=== PATIENT | female | born 1970 | race Hispanic/Latino ===

== ENCOUNTER 2023-01-11 10:28 | Inpatient (IN) | payer BC ==
[~2023-01-11] VITALS: Ht 167.6 cm; Wt 88.0 kg
[2023-01-11 14:16] LABS: BASOPHILS # (AUTO) 0.03 K/uL (0.00-0.20); BASOPHILS % (AUTO) 0.3 % (0.0-5.0); EOSINOPHILS # (AUTO) 0.13 K/uL (0.00-0.70); EOSINOPHILS % (AUTO) 1.3 % (0.0-8.0); HEMATOCRIT 34.4 % (36-48); LYMPHOCYTES # (AUTO) 2.5 K/uL (1.0-4.8); LYMPHOCYTES % (AUTO) 26.3 % (21.0-51.0); MEAN CORPUSCULAR HEMOGLOBIN 28.5 pg (27.0-33.0); MEAN CORPUSCULAR HGB CONC 32.6 g/dL (32.0-36.0); MEAN CORPUSCULAR VOLUME 87.5 fL (79-99); MONOCYTES # (AUTO) 0.8 K/uL (0.1-1.0); MONOCYTES % (AUTO) 7.9 % (3.0-13.0); NEUTROPHILS # (AUTO) 6.1 K/uL (1.8-7.7); NEUTROPHILS % (AUTO) 63.2 % (40.0-77.0); PLATELET COUNT (AUTO) 250 K/uL (130-400); RED BLOOD CELL COUNT(AUTO) 3.93 MIL/uL (4.00-5.50); RED CELL DISTRIBUTION WIDTH 13.7 % (11.0-15.5); WHITE BLOOD COUNT (AUTO) 9.6 K/uL (4.8-10.8)
[2023-01-11 14:22] LABS: INR < 0.93 (0.85-1.15); PROTHROMBIN TIME 10.3 SEC (9.6-11.6)
[2023-01-11 14:24] LABS: PARTIAL THROMBOPLASTIN TIME 26.9 SEC (26.3-35.5)
[2023-01-11 14:35] LABS: CREATININE 0.8 mg/dL (0.5-1.5); POTASSIUM 4.3 mmol/L (3.5-5.1)
[2023-01-11 14:40] LABS: ALBUMIN 3.7 g/dL (3.5-5.0); BILIRUBIN,TOTAL 0.2 mg/dL (0.2-1.0)
[2023-01-11] MEDS: CEFTRIAXONE 1G VIAL IVPB SCH (17:01)
[2023-01-11 17:16] LABS: HEMOGLOBIN A1C 9.8 % (4.0-6.0)
[2023-01-11] MEDS ORDERED: 0.9%NACL 1000ML 1,000 ML IV ONE (18:00)
[2023-01-11] MEDS: MUPIROCIN OINTMENT 22 GM TUBE TP SCH (18:19)
[2023-01-11] MEDS: KETOROLAC 15MG/ML VIAL (15MG/ML) IV PRN (18:20)
[2023-01-11] MEDS ORDERED: PROPOFOL 10 MG/ML 20ML VIAL IV ONE (18:50)
[2023-01-11] MEDS ORDERED: MIDAZOLAM HCL 1 MG/ML 2ML VIAL ONE (18:50)
[2023-01-11] MEDS ORDERED: ROCURONIUM 10MG/1ML SYR 10 MG/ML ML ONE (18:50)
[2023-01-11] MEDS ORDERED: FENTANYL CITRATE PF 50 MCG/1 ML 5ML AMP IV ONE (18:50)
[2023-01-11] MEDS: INSULIN HUMULIN R 100 UNIT/ML 3ML SQ SCH (21:00)
[2023-01-11] MEDS: INSULIN GLARGINE 100 UNITS/ML 10 ML VIAL SQ SCH (21:00)
[2023-01-11 22:30] VITALS: O2SAT 98
[2023-01-11 23:08] VITALS: BP 129/74; PULSE 98; RESP 20
[2023-01-12] VITALS (29 sets, daily range): BP systolic 112–144; BP diastolic 60–74; PULSE 93–119; RESP 12–20; O2SAT 98
[2023-01-12] MEDS ORDERED: ATOR40TA69 PO (00:05)
[2023-01-12] MEDS ORDERED: FISH1CAP27 PO (00:05)
[2023-01-12] MEDS ORDERED: CETI10TA57 PO (00:05)
[2023-01-12] MEDS ORDERED: METO50TA18 PO (00:05)
[2023-01-12] MEDS ORDERED: GABA300C PO (00:05)
[2023-01-12] MEDS ORDERED: FENO54TA6 PO (00:05)
[2023-01-12] MEDS ORDERED: CLOP75TA32 PO (00:05)
[2023-01-12] MEDS ORDERED: METF-446 PO (00:05)
[2023-01-12] MEDS: KETOROLAC 15MG/ML VIAL (15MG/ML) IV PRN (00:12)
[2023-01-12 04:44] LABS: BASOPHILS # (AUTO) 0.04 K/uL (0.00-0.20); BASOPHILS % (AUTO) 0.4 % (0.0-5.0); EOSINOPHILS # (AUTO) 0.08 K/uL (0.00-0.70); EOSINOPHILS % (AUTO) 0.8 % (0.0-8.0); HEMATOCRIT 29.1 % (36-48); IMMATURE GRANULOCYTE ABSOLUTE 0.05 K/uL (0-1); LYMPHOCYTES # (AUTO) 3.1 K/uL (1.0-4.8); MEAN CORPUSCULAR HEMOGLOBIN 28.4 pg (27.0-33.0); MEAN CORPUSCULAR VOLUME 88.7 fL (79-99); MONOCYTES # (AUTO) 0.9 K/uL (0.1-1.0); MONOCYTES % (AUTO) 9.1 % (3.0-13.0); NEUTROPHILS # (AUTO) 5.6 K/uL (1.8-7.7); NEUTROPHILS % (AUTO) 57.2 % (40.0-77.0); PLATELET COUNT (AUTO) 183 K/uL (130-400); RED BLOOD CELL COUNT(AUTO) 3.28 MIL/uL (4.00-5.50); RED CELL DISTRIBUTION WIDTH 13.7 % (11.0-15.5); WHITE BLOOD COUNT (AUTO) 9.8 K/uL (4.8-10.8)
[2023-01-12 04:52] LABS: CREATININE 0.9 mg/dL (0.5-1.5); POTASSIUM 4.6 mmol/L (3.5-5.1)
[2023-01-12] MEDS: INSULIN HUMULIN R 100 UNIT/ML 3ML SQ SCH ×4 (06:12→21:02)
[2023-01-12] MEDS ORDERED: ONDANSETRON 4MG INJ ONE (07:24)
[2023-01-12] MEDS ORDERED: LIDOCAINE 2%-EPI 1:200,000 20 ML VIAL IJ ONE (07:30)
[2023-01-12] MEDS ORDERED: ROPIVACAINE 0.5% 5MG/ML 30ML IJ ONE (07:30)
[2023-01-12] MEDS ORDERED: DEXAMETHASONE SOD PHOSPHATE 10MG/ML 1ML VIAL ONE (07:31)
[2023-01-12] MEDS ORDERED: TRANEXAMIC ACID 1000MG/10ML ONE (08:23)
[2023-01-12] MEDS ORDERED: TRANEXAMIC ACID 1000MG/10ML IV ONE (08:46)
[2023-01-12] MEDS ORDERED: ROCURONIUM 10MG/1ML SYR 10 MG/ML ML ONE (08:58)
[2023-01-12] MEDS: MUPIROCIN OINTMENT 22 GM TUBE TP SCH ×2 (09:00→21:00)
[2023-01-12] MEDS ORDERED: PHENYLEPHRINE HCL 10 MG/ML 1ML VIAL IV ONE (09:03)
[2023-01-12] MEDS ORDERED: MEPERIDINE-PF 25 MG/ML SYG ONE (10:19)
[2023-01-12] MEDS ORDERED: FENTANYL CITRATE PF 50 MCG/1 ML 2ML VIAL ONE ×2 (10:49→10:54)
[2023-01-12] MEDS ORDERED: CEFAZOLIN SODIUM 2 GM VIAL ONE (10:51)
[2023-01-12] MEDS ORDERED: KETOROLAC 30MG VIAL (30MG/ML) ONE (10:56)
[2023-01-12] MEDS ORDERED: NEOSTIGMINE 5MG/5ML SYR IV ONE (10:59)
[2023-01-12] MEDS ORDERED: GLYCOPYRROLATE 1 MG/5 ML SYRINGE ONE (10:59)
[2023-01-12] MEDS ORDERED: METOPROLOL TARTRATE 1 MG/ML 5ML VIAL IV ONE (11:27)
[2023-01-12] MEDS ORDERED: FERROUS FUMARATE 324 MG TABLET PO PRN (12:00)
[2023-01-12] MEDS ORDERED: KETOROLAC 15MG/ML VIAL (15MG/ML) IV PRN (12:00)
[2023-01-12] MEDS ORDERED: KCL 20 MEQ ERTAB PO PRN (12:00)
[2023-01-12] MEDS ORDERED: POTASSIUM CHLORIDE 10% ELIXIR 20 MEQ/15 ML UDCUP PO PRN (12:00)
[2023-01-12] MEDS ORDERED: DiphenhydrAMINE HCL 50 MG/ML VIAL IVP PRN (12:00)
[2023-01-12] MEDS ORDERED: POTASSIUM CHLORIDE 20MEQ/100ML 100 ML IV PRN (12:00)
[2023-01-12] MEDS ORDERED: ONDANSETRON 4MG INJ IVP PRN (12:00)
[2023-01-12] MEDS ORDERED: CALCIUM CARB 500MG PO PRN (12:00)
[2023-01-12] MEDS: CEFTRIAXONE 1G VIAL IVPB SCH (16:35)
[2023-01-12] MEDS: CEFAZOLIN SODIUM 2 GM VIAL IVPB SCH (16:35)
[2023-01-12] MEDS: KETOROLAC 15MG/ML VIAL (15MG/ML) IV SCH ×2 (16:36→23:27)
[2023-01-12] MEDS: GABAPENTIN 100 MG CAPSULE PO SCH ×2 (16:37→21:00)
[2023-01-12] MEDS: 0.9%NACL 1000ML 1,000 ML IV SCH ×2 (16:40→22:00)
[2023-01-12] MEDS: MORPHINE 2 MG SYG IVP PRN (18:48)
[2023-01-12] MEDS: FISH OIL 1000 MG/CAP PO SCH (20:59)
[2023-01-12] MEDS: ATORVASTATIN 40 MG TABLET PO SCH (21:00)
[2023-01-12] MEDS: ASPIRIN 325MG TAB PO SCH (21:00)
[2023-01-12] MEDS: DOCUSATE SODIUM 100 MG CAP PO SCH (21:00)
[2023-01-12] MEDS: INSULIN GLARGINE 100 UNITS/ML 10 ML VIAL SQ SCH (21:03)
[2023-01-12] MEDS: HYDROCODONE/ACETAMINOPHEN 5/325 MG TAB PO PRN (21:36)
[2023-01-13] VITALS (7 sets, daily range): BP systolic 104–141; BP diastolic 46–79; PULSE 98–127; RESP 18–20; O2SAT 98
[2023-01-13] MEDS: CEFAZOLIN SODIUM 2 GM VIAL IVPB SCH (00:10)
[2023-01-13] MEDS: TRAMADOL HCL 50 MG TABLET PO PRN (00:10)
[2023-01-13 04:59] LABS: HEMATOCRIT 24.7 % (36-48); MEAN CORPUSCULAR HEMOGLOBIN 28.7 pg (27.0-33.0); MEAN CORPUSCULAR HGB CONC 32.4 g/dL (32.0-36.0); MEAN CORPUSCULAR VOLUME 88.5 fL (79-99); RED BLOOD CELL COUNT(AUTO) 2.79 MIL/uL (4.00-5.50); RED CELL DISTRIBUTION WIDTH 13.7 % (11.0-15.5)
[2023-01-13 05:04] LABS: CREATININE 0.8 mg/dL (0.5-1.5); POTASSIUM 3.7 mmol/L (3.5-5.1)
[2023-01-13] MEDS: HYDROCODONE/ACETAMINOPHEN 5/325 MG TAB PO PRN (05:18)
[2023-01-13] MEDS: KETOROLAC 15MG/ML VIAL (15MG/ML) IV SCH (06:15)
[2023-01-13] MEDS: INSULIN HUMULIN R 100 UNIT/ML 3ML SQ SCH ×4 (06:18→21:51)
[2023-01-13] MEDS: 0.9%NACL 1000ML 1,000 ML IV SCH (08:00)
[2023-01-13] MEDS: KETOROLAC 15MG/ML VIAL (15MG/ML) IV PRN (08:11)
[2023-01-13] MEDS: ASPIRIN 325MG TAB PO SCH ×2 (08:11→21:39)
[2023-01-13] MEDS: GABAPENTIN 100 MG CAPSULE PO SCH ×3 (08:11→21:39)
[2023-01-13] MEDS: DOCUSATE SODIUM 100 MG CAP PO SCH ×2 (08:11→21:39)
[2023-01-13] MEDS: CETIRIZINE HCL 5 MG TABLET PO SCH (08:12)
[2023-01-13] MEDS: POLYETHYLENE GLYCOL 3350 17 GM POWD.PACK PO SCH (08:12)
[2023-01-13] MEDS ORDERED: NON-FORMULARY MEDICATION 1 EACH (Cetirizine HCl 10 MG) PO SCH (09:00)
[2023-01-13] MEDS: MUPIROCIN OINTMENT 22 GM TUBE TP SCH ×2 (09:00→21:00)
[2023-01-13] MEDS: MORPHINE 2 MG SYG IVP PRN ×2 (15:43→21:53)
[2023-01-13] MEDS: CEFTRIAXONE 1G VIAL IVPB SCH (15:43)
[2023-01-13] MEDS: CYCLOBENZAPRINE HCL 10 MG TABLET PO PRN (17:37)
[2023-01-13] MEDS ORDERED: METOPROLOL TARTRATE 25 MG TAB PO ONE (21:00)
[2023-01-13] MEDS: FISH OIL 1000 MG/CAP PO SCH (21:39)
[2023-01-13] MEDS: ATORVASTATIN 40 MG TABLET PO SCH (21:39)
[2023-01-13] MEDS: INSULIN GLARGINE 100 UNITS/ML 10 ML VIAL SQ SCH (21:50)
[2023-01-14] VITALS (7 sets, daily range): BP systolic 94–119; BP diastolic 52–61; PULSE 97–128; RESP 18–20; O2SAT 98
[2023-01-14] MEDS: HYDROCODONE/ACETAMINOPHEN 5/325 MG TAB PO PRN (01:17)
[2023-01-14 04:59] LABS: HEMATOCRIT 24.4 % (36-48); MEAN CORPUSCULAR HEMOGLOBIN 28.3 pg (27.0-33.0); MEAN CORPUSCULAR HGB CONC 31.1 g/dL (32.0-36.0); MEAN CORPUSCULAR VOLUME 90.7 fL (79-99); RED BLOOD CELL COUNT(AUTO) 2.69 MIL/uL (4.00-5.50); RED CELL DISTRIBUTION WIDTH 13.9 % (11.0-15.5); WHITE BLOOD COUNT (AUTO) 11.4 K/uL (4.8-10.8)
[2023-01-14 05:04] LABS: CREATININE 0.9 mg/dL (0.5-1.5); POTASSIUM 4.1 mmol/L (3.5-5.1)
[2023-01-14] MEDS: INSULIN HUMULIN R 100 UNIT/ML 3ML SQ SCH ×2 (06:41→21:58)
[2023-01-14] MEDS: METOPROLOL TARTRATE 50 MG TAB PO SCH ×2 (08:32→21:53)
[2023-01-14] MEDS: DOCUSATE SODIUM 100 MG CAP PO SCH ×2 (08:32→21:53)
[2023-01-14] MEDS: CYCLOBENZAPRINE HCL 10 MG TABLET PO PRN (08:32)
[2023-01-14] MEDS: GABAPENTIN 100 MG CAPSULE PO SCH (08:33)
[2023-01-14] MEDS: CETIRIZINE HCL 5 MG TABLET PO SCH (08:33)
[2023-01-14] MEDS: POLYETHYLENE GLYCOL 3350 17 GM POWD.PACK PO SCH (08:33)
[2023-01-14] MEDS: ASPIRIN 325MG TAB PO SCH (08:33)
[2023-01-14] MEDS: MUPIROCIN OINTMENT 22 GM TUBE TP SCH ×2 (09:00→21:00)
[2023-01-14] MEDS: CEFTRIAXONE 1G VIAL IVPB SCH (14:49)
[2023-01-14] MEDS: GABAPENTIN 300 MG CAPSULE PO SCH ×2 (14:54→21:53)
[2023-01-14] MEDS: KETOROLAC 15MG/ML VIAL (15MG/ML) IV PRN (14:58)
[2023-01-14] MEDS ORDERED: INSULIN HUMULIN R 100 UNIT/ML 3ML SQ SCH (16:30)
[2023-01-14 21:28] LABS: HEMATOCRIT 24.2 % (36-48)
[2023-01-14] MEDS: ATORVASTATIN 40 MG TABLET PO SCH (21:52)
[2023-01-14] MEDS: FISH OIL 1000 MG/CAP PO SCH (21:53)
[2023-01-14] MEDS: TRAMADOL HCL 50 MG TABLET PO PRN (21:53)
[2023-01-14] MEDS: INSULIN GLARGINE 100 UNITS/ML 10 ML VIAL SQ SCH (21:55)
[2023-01-15] VITALS: BP 122/56; PULSE 118; RESP 18
[2023-01-15 04:00] VITALS: BP 99/56; PULSE 102; RESP 20
[2023-01-15] MEDS: HYDROCODONE/ACETAMINOPHEN 5/325 MG TAB PO PRN ×2 (04:03→09:59)
[2023-01-15 05:18] LABS: RETICULOCYTE % (AUTO) 2.36 % (0.42-2.23)
[2023-01-15 05:33] LABS: % IRON SATURATION 6.4 % (22-44)
[2023-01-15 05:58] LABS: FERRITIN 275 ng/mL (15-150)
[2023-01-15] MEDS: INSULIN HUMULIN R 100 UNIT/ML 3ML SQ SCH ×4 (06:55→11:29)
[2023-01-15 07:31] LABS: BASOPHILS # (AUTO) 0.05 K/uL (0.00-0.20); BASOPHILS % (AUTO) 0.4 % (0.0-5.0); EOSINOPHILS # (AUTO) 0.11 K/uL (0.00-0.70); EOSINOPHILS % (AUTO) 0.9 % (0.0-8.0); HEMATOCRIT 23.4 % (36-48); IMMATURE GRANULOCYTE ABSOLUTE 0.13 K/uL (0-1); LYMPHOCYTES # (AUTO) 3.1 K/uL (1.0-4.8); LYMPHOCYTES % (AUTO) 26.1 % (21.0-51.0); MEAN CORPUSCULAR HEMOGLOBIN 29.2 pg (27.0-33.0); MEAN CORPUSCULAR HGB CONC 32.5 g/dL (32.0-36.0); MONOCYTES # (AUTO) 1.5 K/uL (0.1-1.0); MONOCYTES % (AUTO) 12.6 % (3.0-13.0); NEUTROPHILS # (AUTO) 7.1 K/uL (1.8-7.7); NEUTROPHILS % (AUTO) 58.9 % (40.0-77.0); NUCLEATED RED BLOOD CELLS 0.2 % (0.0-0.19); PLATELET COUNT (AUTO) 181 K/uL (130-400); RED CELL DISTRIBUTION WIDTH 14.1 % (11.0-15.5)
[2023-01-15 07:46] LABS: ALBUMIN 2.7 g/dL (3.5-5.0); BILIRUBIN,TOTAL 0.6 mg/dL (0.2-1.0); CREATININE 0.9 mg/dL (0.5-1.5); MAGNESIUM 1.4 mg/dL (1.80-2.40); POTASSIUM 4.1 mmol/L (3.5-5.1); TOTAL PROTEIN, SERUM 6.9 g/dL (6.0-8.3)
[2023-01-15 07:57] VITALS: BP 108/59; PULSE 104; RESP 21
[2023-01-15 08:00] VITALS: O2SAT 98
[2023-01-15] MEDS: GABAPENTIN 300 MG CAPSULE PO SCH ×2 (09:00→14:47)
[2023-01-15] MEDS: DOCUSATE SODIUM 100 MG CAP PO SCH (09:00)
[2023-01-15] MEDS: METOPROLOL TARTRATE 50 MG TAB PO SCH (09:00)
[2023-01-15] MEDS: CETIRIZINE HCL 5 MG TABLET PO SCH (09:00)
[2023-01-15] MEDS: MUPIROCIN OINTMENT 22 GM TUBE TP SCH (09:00)
[2023-01-15] MEDS: POLYETHYLENE GLYCOL 3350 17 GM POWD.PACK PO SCH (09:00)
[2023-01-15 11:10] VITALS: BP 102/61; PULSE 97; RESP 21
[2023-01-15] MEDS ORDERED: BISACODYL 10 MG SUPP.RECT RC PRN (12:00)
[2023-01-15] MEDS ORDERED: MAGNESIUM 2GM PREMIX 50ML 50 ML IV SCH (12:00)
[2023-01-15] MEDS ORDERED: EPOETIN ALFA-EPBX (NON-ESRD) 10,000 UNIT/ML VIAL SQ ONE (12:00)
[2023-01-15] MEDS ORDERED: FERR324T10 PO (13:28)
[2023-01-15] MEDS ORDERED: POLY17PO4 PO (13:28)
[2023-01-15] MEDS ORDERED: TRAM50TA4 PO (13:28)
== END 2023-01-15 18:00 | disposition home or self-care (01) | DRG 481 ==
LOC: EDH 10:28 → EDHIP 16:45 → 4AH 20:06
PROVIDERS: ADMIT Internal Medicine; ATTEND Internal Medicine
PROC: 0QSB04Z Reposition Right Lower Femur with Internal Fixation Device, Open Approach (ICD-10-PCS; principal; 2023-01-12 07:30)
DX: S72.451A Displaced supracondylar fracture without intracondylar extension of lower end of right femur, initial encounter for closed fracture (principal); D62 Acute posthemorrhagic anemia; E11.65 Type 2 diabetes mellitus with hyperglycemia; E78.1 Pure hyperglyceridemia; I10 Essential (primary) hypertension; W18.39XA Other fall on same level, initial encounter; D63.8 Anemia in other chronic diseases classified elsewhere; Z86.73 Personal history of transient ischemic attack (TIA), and cerebral infarction without residual deficits; Z79.4 Long term (current) use of insulin; Z79.82 Long term (current) use of aspirin; Y93.89 Activity, other specified; Z89.511 Acquired absence of right leg below knee; Y92.89 Other specified places as the place of occurrence of the external cause; Y99.8 Other external cause status
CPT/HCPCS: 36415; 71045; 73552; 73562; 80048; 80053; 82607; 82728; 82746; 82948; 83036; 83540; 83550; 83735; 84145; 84703; 85014; 85018; 85025; 85027; 85045; 85610; 85730; 86140; 86850; 86900; 86901; 87040; 93005; 97039; G0378; J0696; J1100; J1815; J1885; J2175; J2250; J2270; J2371; J2405; J2704; J2710; J2795; J3010; J3475; J3490; A4215; A4221; A4222; A4223; A4663; J0690; Q5106